=== PATIENT | female | born 1975 ===

== ENCOUNTER 2018-01-06 14:01 | Emergency (ER) | payer OTHER ==
[2018-01-06 14:21] VITALS: TEMP 98.4
[2018-01-06] MEDS ORDERED: Sodium Chloride 0.9% 1,000 ML IV STA (14:39)
[2018-01-06 15:18] LABS: BASO # 0.1 K/uL (0.0-0.2); BASO % 1.3 % (0.0-2.0); EOS # 0.1 K/uL (0.0-0.7); EOS % 1.6 % (0.0-4.0); HEMOGLOBIN 14.9 g/dL (11.0-16.0); LYMPH # 2.9 K/uL (1.0-4.3); MEAN CELL VOLUME 94.8 fL (81.0-99.0); MEAN CORPUSCULAR HEMOGLOBIN 32.5 pg (27.0-31.0); MEAN CORPUSCULAR HGB CONC 34.2 g/dL (33.0-37.0); MONO # 0.8 K/uL (0.0-0.8); MONO % 9.7 % (0.0-10.0); NEUT # 4.4 K/uL (1.8-7.0); NEUT % 52.4 % (50.0-75.0); RBC 4.6 Mil/uL (3.80-5.20); RED CELL DISTRIBUTION WIDTH 13.6 % (11.5-14.5); WHITE BLOOD COUNT 8.3 K/uL (4.8-10.8)
[2018-01-06 15:27] LABS: SQUAMOUS EPITHIAL 2 /hpf (0-5); URINE BILIRUBIN NEGATIVE (NEGATIVE); URINE BLOOD 1+ (NEGATIVE); URINE CLARITY Clear (Clear); URINE COLOR Yellow (YELLOW); URINE GLUCOSE (UA) NORMAL (Normal); URINE LEUKOCYTE ESTERASE NEG Leu/uL (Negative); URINE PROTEIN NEGATIVE (NEGATIVE); URINE UROBILINOGEN NORMAL mg/dL (0.2-1.0)
[2018-01-06 15:31] LABS: ALB/GLOB RATIO 1.1 (1.0-2.1); ALBUMIN 3.9 g/dL (3.5-5.0); ALT/SGPT 20 U/L (9-52); AST/SGOT 23 U/L (14-36); BLOOD UREA NITROGEN 16 mg/dL (7-17); CALCIUM 8.9 mg/dl (8.6-10.4); GFR AFRICAN-AMERICAN > 60; GFR NON-AFRICAN AMERICAN > 60; LIPASE 65 U/L (23-300)
--- NOTE | 2018-01-06 17:03 | CT ---
PROCEDURE: CT Abdomen and Pelvis without intravenous contrast HISTORY: right flank pain, microhematuria COMPARISON: 09/23/2015 CT abdomen and pelvis 02/16/2016 renal ultrasound TECHNIQUE: Unenhanced study. Neither oral nor intravenous contrast administered. Total exam DLP = 1091.37 mGy-cm. This CT exam was performed using one or more of the following dose reduction techniques: Automated exposure control, adjustment of the mA and/or kV according to patient size, and/or use of iterative reconstruction technique. FINDINGS: LOWER THORAX: Unremarkable. LIVER: Unremarkable. No gross lesion or ductal dilatation. GALLBLADDER AND BILE DUCTS: Unremarkable. PANCREAS: Unremarkable. No gross lesion or ductal dilatation. SPLEEN: Unremarkable. ADRENALS: Unremarkable. No mass. KIDNEYS AND URETERS: Unremarkable. No hydronephrosis. No solid mass. VASCULATURE: Unremarkable. No aortic aneurysm. BOWEL: Diverticulosis without an acute inflammatory component or other associated pathologic process. APPENDIX: Prior appendectomy PERITONEUM: Unremarkable. No free fluid. No free air. LYMPH NODES: Unremarkable. No enlarged lymph nodes. BLADDER: Unremarkable. REPRODUCTIVE: Prior hysterectomy BONES: No acute fracture. OTHER FINDINGS: None. IMPRESSION: No significant or acute findings to account for/ related to the clinical presentation. No significant interval change compared to the prior examination(s).
[2018-01-06] MEDS ORDERED: Lidocaine 5% Patch TD STA (17:07)
[2018-01-06] MEDS ORDERED: Lidocaine 5% Patch TD ONE (17:37)
--- NOTE | 2018-01-06 17:42 | RAD ---
PROCEDURE: Radiographs of the Lumbar Spine. HISTORY: low back pain COMPARISON: No prior. FINDINGS: BONES: Normal lumbar curvature is identified however there is a subtle dextroscoliosis of the lumbar spine versus positional changes. Further, there may be a transitional L1. DISC SPACES: Unremarkable. OTHER FINDINGS: None. IMPRESSION: No fracture or spondylolisthesis identified. Subtle levoscoliotic cysts in question versus positional changes. Consider possible transitional L1 vertebral body.
[2018-01-06 18:07] VITALS: BP 106/73; PULSE 79; RESP 18; O2SAT 99
--- NOTE | 2018-01-06 18:23 | C.PDOC ---
History Of Present Illness 42 y/o female presents to the ED complaining of pain to the right flank area since yesterday. Associated with nausea, vomiting, and lightheadedness. She describes pain as stabbing, constant, and not changing with body position. Patient reports past medical history of gall stones and pyelonephritis. Time Seen by Provider: 01/06/18 14:31 Chief Complaint (Nursing): Back Pain History Per: Patient History/Exam Limitations: no limitations Onset/Duration Of Symptoms: Days Current Symptoms Are (Timing): Still Present Past Medical History Reviewed: Historical Data, Nursing Documentation, Vital Signs Vital Signs: Last Vital Signs Temp 98.4 F 01/06/18 14:20 Pulse 79 01/06/18 18:07 Resp 18 01/06/18 18:07 BP 106/73 01/06/18 18:07 Pulse Ox 99 01/06/18 18:22 - Medical History PMH: Asthma, HTN, Hypercholesterolemia, Kidney Stones Surgical History: Appendectomy Family History: States: CAD - Social History Hx Tobacco Use: Yes Hx Alcohol Use: Yes Hx Substance Use: No - Immunization History Hx Tetanus Toxoid Vaccination: No Hx Influenza Vaccination: No Hx Pneumococcal Vaccination: No Review Of Systems Except As Marked, All Systems Reviewed And Found Negative. Constitutional: Negative for: Fever, Chills Cardiovascular: Positive for: Light Headedness Gastrointestinal: Positive for: Nausea, Vomiting Musculoskeletal: Positive for: Other (right flank pain) Physical Exam - Physical Exam Appears: Non-toxic, No Acute Distress Skin: Normal Color, Warm, Dry Head: Atraumatic, Normacephalic Eye(s): bilateral: Normal Inspection, PERRL, EOMI Nose: Normal Oral Mucosa: Moist Neck: Normal ROM Chest: Symmetrical Cardiovascular: Rhythm Regular, No Murmur Respiratory: Normal Breath Sounds, No Accessory Muscle Use Gastrointestinal/Abdominal: Soft, No Tenderness, No Distention Back: Normal Inspection, No CVA Tenderness, No Vertebral Tenderness Extremity: Bilateral: Atraumatic, Normal Color And Temperature, Normal ROM Neurological/Psych: Oriented x3, Normal Speech ED Course And Treatment - Laboratory Results Result Diagrams: 01/06/18 15:14 01/06/18 15:14 O2 Sat by Pulse Oximetry: 99 (RA) Pulse Ox Interpretation: Normal - Other Rad X-ray lumbar spine X-Ray: Viewed By Me, Read By Radiologist Interpretation: FINDINGS: BONES: Normal lumbar curvature is identified however there is a subtle dextroscoliosis of the lumbar spine versus positional changes. Further, there may be a transitional L1. DISC SPACES: Unremarkable. OTHER FINDINGS: None. IMPRESSION: No fracture or spondylolisthesis identified. Subtle levoscoliotic cysts in question versus positional changes. Consider possible transitional L1 vertebral body. - CT Scan/US CT abdomen/pelvis Other Rad Studies (CT/US): Read By Radiologist, Radiology Report Reviewed CT/US Interpretation: FINDINGS: LOWER THORAX: Unremarkable. LIVER: Unremarkable. No gross lesion or ductal dilatation. GALLBLADDER AND BILE DUCTS : Unremarkable. PANCREAS: Unremarkable. No gross lesion or ductal dilatation. SPLEEN: Unremarkable. ADRENALS: Unremarkable. No mass. KIDNEYS AND URETERS: Unremarkable. No hydronephrosis. No solid mass. VASCULATURE: Unremarkable. No aortic aneurysm. BOWEL: Diverticulosis without an acute inflammatory component or other associated pathologic process. APPENDIX: Prior appendectomy. PERITONEUM: Unremarkable. No free fluid. No free air. LYMPH NODES: Unremarkable. No enlarged lymph nodes. BLADDER: Unremarkable. REPRODUCTIVE: Prior hysterectomy. BONES: No acute fracture. OTHER FINDINGS: None. IMPRESSION: No significant or acute findings to account for/ related to the clinical presentation. No significant interval change compared to the prior examination(s). Medical Decision Making Medical Decision Making: Impression: 42 y/o female with flank pain and vomiting Time: 14:39 Plan: --CMP --Lipase --CBC --UA --IV fluids --Toradol 30 mg IVP --Zofran 4 mg IVP --CT abdomen/pelvis CT findings discussed with patient. 17:00 Patient given Lidoderm patch and Valium PO. Ordered x-ray lumbar spine. Counseled patient regarding x-ray findings. Patient is stable for discharge home. Advised to take all medications as prescribed. Disposition Counseled Patient/Family Regarding: Studies Performed, Diagnosis, Need For Followup, Rx Given - Disposition Disposition: HOME/ ROUTINE Disposition Time: 18:20 Condition: GOOD Additional Instructions: Follow up with PMD within 1-2 days. Return to ED if feel worse. Prescriptions: Cyclobenzaprine [Cyclobenzaprine HCl] 10 mg PO TID #15 tab Lidocaine 5% [Lidoderm] 1 patch TP DAILY #30 patch Ibuprofen [Motrin Tab] 600 mg PO Q8 #30 tab Famotidine [Pepcid] 20 mg PO BID #20 tab Instructions: Low Back Pain in Adults Forms: [facility] (Honduran), Work Excuse Print Language: YI - Clinical Impression Clinical Impression: Low back pain
== END 2018-01-06 18:40 | disposition home or self-care (01) ==
LOC: C.ER 14:01
DX: M54.5 Low back pain (principal); E78.00 Pure hypercholesterolemia, unspecified; I10 Essential (primary) hypertension; Z72.0 Tobacco use
CPT/HCPCS: 72100; 74176; 80053; 81001; 83690; 85025; 96361; 96374; 96375; 99285; J1885; J2405; J7040